=== PATIENT | female | born 1955 | race Caucasian/White ===

== ENCOUNTER → 2016-04-08 | Outpatient (CLI) | payer MEDICARE ==
[~2016-04-08] MED LIST: AMLODIPINE10 MG; AUGMENTIN 875 M1 TAB PO; CITALOPRAM20 MG PO; GLIPIZIDE10 MG PO; HYDROCODONE BIT1 T11 PO; HYZAAR 50/12.5M1 TAB; LOSARTAN POTASS1 TA2 PO; METFORMIN1000 MG; METFORMIN500 MG PO; MOTRIN,RUFEN800 MG PO; MOTRIN800 MG; PRANDIN2 MG; SIMVASTATIN40 MG PO; VICODIN 5/500 505 MG; XANAX0.5 MG; ZOVIRAX400 MG PO
[2016-04-08 14:19] LABS: BASO # 0.1 10*3/uL (0.0-0.1); BASO % 0.6 % (0.0-1.0); EOS # 0.1 10*3/uL (0.0-0.4); EOS % 0.7 % (1.0-4.0); HEMATOCRIT 43.5 % (37.0-47.0); HEMOGLOBIN 14.9 g/dl (12.0-16.0); IG # 0.1 10*3/uL (0.0-0.1); LYMPH % 19.1 % (27.0-41.0); MEAN CELL VOLUME 89.9 fl (81.0-99.0); MEAN CORPUSCULAR HGB 30.8 pg (27.0-31.0); MEAN CORPUSCULAR HGB CONC 34.3 g/dl (33.0-37.0); MEAN PLATELET VOLUME 10.6 fl (9.6-12.3); MONO # 0.9 10*3/uL (0.1-1.0); MONO % 8.4 % (3.0-9.0); NEUT # 7.5 10*3/uL (2.3-7.9); NEUT % 70.5 % (47.0-73.0); PLATELET COUNT AUTOMATED 316 10*3/uL (130-400); RED BLOOD COUNT 4.84 10*6/uL (4.10-5.10); RED CELL DISTRI WIDTH 13.2 % (0-14.5); WHITE BLOOD COUNT 10.7 10*3/uL (4.8-10.8)
[2016-04-08 14:45] LABS: BUN 13 mg/dl (7-24); EST GLOM FILT AFRICAN AMERICAN > 60 ml/min; SGOT/AST 29 IU/L (3-35); SGPT/ALT 44 U/L (12-78)
== END | disposition home or self-care (01) ==
LOC: LAB 13:47
PROVIDERS: Internal Medicine Rheumatology
DX: Z51.81 Encounter for therapeutic drug level monitoring (principal)

== ENCOUNTER → 2017-03-17 | Outpatient (CLI) | payer MEDICARE | END | disposition home or self-care (01) | LOC: MAMMO 09:45 | DX: Z12.31 Encounter for screening mammogram for malignant neoplasm of breast (principal) ==

== ENCOUNTER → 2017-09-10 | Outpatient (CLI) | payer MEDICARE | END | disposition home or self-care (01) | LOC: RAD 13:00 | DX: Z13.820 Encounter for screening for osteoporosis (principal); J98.8 Other specified respiratory disorders; E11.9 Type 2 diabetes mellitus without complications; E55.9 Vitamin D deficiency, unspecified; R29.890 Loss of height; Z78.0 Asymptomatic menopausal state; Z87.891 Personal history of nicotine dependence; Z90.710 Acquired absence of both cervix and uterus; Z79.52 Long term (current) use of systemic steroids ==

== ENCOUNTER 2017-09-13 18:03 | Emergency (ER) | payer MEDICARE ==
[~2017-09-13] VITALS: Ht 165.1 cm; Wt 104.3 kg
== END 2017-09-13 19:09 | disposition home or self-care (01) ==
LOC: ED 18:03
DX: G45.9 Transient cerebral ischemic attack, unspecified (principal); G89.29 Other chronic pain; M25.561 Pain in right knee; I10 Essential (primary) hypertension; E11.9 Type 2 diabetes mellitus without complications; M06.9 Rheumatoid arthritis, unspecified; Z90.710 Acquired absence of both cervix and uterus; Z98.890 Other specified postprocedural states; Z79.899 Other long term (current) drug therapy; Z91.012 Allergy to eggs; Z91.010 Allergy to peanuts

== ENCOUNTER → 2019-08-18 | Day surgery (SDC) | payer MEDICARE ==
[~2019-08-18] VITALS: Ht 167.6 cm; Wt 108.9 kg
[~2019-08-18] MED LIST changes: +ASPIRIN CHEWABL81 MG PO; +ENBREL MIN50 MG/1 M1 SQ; +LIPITOR40 MG PO; +NATURE'S BLEND F1 MG PO; +OCUFLOX 0.3% 5 M5 ML INTRAOC; +PLAVIX75 M1 PO; +PRED FORTE5 ML IO; +TRESIBA FL200 UNIT/1 SQ; +VENT7GM INH; +VITAMIN D-40010 MCG PO
[2019-08-18 07:30] VITALS: BP 163/77
[2019-08-18 09:01] VITALS: BP 122/59
[2019-08-18 09:16] VITALS: BP 129/87
[2019-08-18 09:31] VITALS: BP 127/63
== END | disposition home or self-care (01) ==
LOC: SDC 06-11 09:30
DX: H25.811 Combined forms of age-related cataract, right eye (principal); I10 Essential (primary) hypertension; E11.9 Type 2 diabetes mellitus without complications; J45.909 Unspecified asthma, uncomplicated; F41.9 Anxiety disorder, unspecified; F32.9 Major depressive disorder, single episode, unspecified; I25.10 Atherosclerotic heart disease of native coronary artery without angina pectoris; K21.9 Gastro-esophageal reflux disease without esophagitis; E78.5 Hyperlipidemia, unspecified; M19.90 Unspecified osteoarthritis, unspecified site; E66.9 Obesity, unspecified; Z68.38 Body mass index [BMI] 38.0-38.9, adult; Z98.890 Other specified postprocedural states; Z79.899 Other long term (current) drug therapy; Z86.73 Personal history of transient ischemic attack (TIA), and cerebral infarction without residual deficits; Z83.3 Family history of diabetes mellitus; Z82.49 Family history of ischemic heart disease and other diseases of the circulatory system

== ENCOUNTER → 2019-09-15 | Day surgery (SDC) | payer MEDICARE ==
[2019-09-15 06:35] VITALS: BP 157/81
[2019-09-15 08:15] VITALS: BP 122/79
[2019-09-15 08:30] VITALS: BP 12/53
[2019-09-15 08:44] VITALS: BP 119/58
== END | disposition home or self-care (01) ==
LOC: SDC 09-09 08:00
DX: H25.812 Combined forms of age-related cataract, left eye (principal); I10 Essential (primary) hypertension; J45.909 Unspecified asthma, uncomplicated; E11.36 Type 2 diabetes mellitus with diabetic cataract; F41.9 Anxiety disorder, unspecified; K21.9 Gastro-esophageal reflux disease without esophagitis; F32.9 Major depressive disorder, single episode, unspecified; Z98.890 Other specified postprocedural states; Z79.899 Other long term (current) drug therapy; Z79.4 Long term (current) use of insulin; Z83.3 Family history of diabetes mellitus; Z82.49 Family history of ischemic heart disease and other diseases of the circulatory system

== ENCOUNTER → 2019-09-30 | Outpatient (CLI) | payer MEDICARE | END | disposition home or self-care (01) | LOC: MAMMO 09-27 09:00 | DX: Z12.31 Encounter for screening mammogram for malignant neoplasm of breast (principal) ==

== ENCOUNTER → 2021-03-15 | Outpatient (CLI) | payer OTHER ==
[2021-03-15 12:24] LABS: BASO # 0.1 10*3/uL (0.0-0.1); BASO % 0.6 % (0.0-1.0); EOS # 0.1 10*3/uL (0.0-0.4); EOS % 0.9 % (1.0-4.0); HEMATOCRIT 40.5 % (37.0-47.0); LYMPH # 2.1 10*3/uL (1.3-4.4); LYMPH % 25.8 % (27.0-41.0); MEAN CELL VOLUME 91.4 fl (81.0-99.0); MEAN CORPUSCULAR HGB 30.2 pg (27.0-31.0); MEAN CORPUSCULAR HGB CONC 33.1 g/dl (33.0-37.0); MEAN PLATELET VOLUME 10.4 fl (9.6-12.3); MONO # 0.7 10*3/uL (0.1-1.0); MONO % 8.7 % (3.0-9.0); NEUT # 5.1 10*3/uL (2.3-7.9); NEUT % 63.4 % (47.0-73.0); PLATELET COUNT AUTOMATED 312 10*3/uL (130-400); RED BLOOD COUNT 4.43 10*6/uL (4.10-5.10); RED CELL DISTRI WIDTH 13.6 % (0-14.5); WHITE BLOOD COUNT 8.1 10*3/uL (4.8-10.8)
[2021-03-15 12:41] LABS: BUN 11 mg/dl (7-24); CHOLESTEROL 165 mg/dL (<200); CREATININE 0.84 mg/dL (0.55-1.02); LDL CHOLESTEROL 69 mg/dL (9-159); SGOT/AST 26 IU/L (3-35); SGPT/ALT 42 U/L (12-78); TRIGLYCERIDES 132 mg/dl (<150)
== END | disposition home or self-care (01) ==
LOC: LAB 11:16
PROVIDERS: ATTEND Internal Medicine Rheumatology
DX: Z79.899 Other long term (current) drug therapy (principal)

== ENCOUNTER → 2021-07-27 | Outpatient (CLI) | payer OTHER ==
[2021-07-27 09:46] LABS: CHOLESTEROL 125 mg/dL (<200); LDL CHOLESTEROL 55 mg/dL (9-159); TRIGLYCERIDES 79 mg/dl (<150)
== END | disposition home or self-care (01) ==
LOC: LAB 08:41
PROVIDERS: ATTEND Internal Medicine Cardiovascular Disease
DX: I25.10 Atherosclerotic heart disease of native coronary artery without angina pectoris (principal)

== ENCOUNTER → 2022-05-13 | Outpatient (CLI) | payer OTHER | END | disposition home or self-care (01) | LOC: MAMMO 03-25 08:30 | PROVIDERS: ATTEND Family Medicine | DX: Z12.31 Encounter for screening mammogram for malignant neoplasm of breast (principal) ==

== ENCOUNTER → 2022-06-14 | Outpatient (CLI) | payer OTHER | END | disposition home or self-care (01) | LOC: RAD 11:16 | PROVIDERS: ATTEND Family Medicine | DX: R05.3 Chronic cough (principal) ==

== ENCOUNTER → 2023-04-18 | Outpatient (CLI) | payer BC ==
[2023-04-18 10:11] LABS: BASO # 0.1 10*3/uL (0.0-0.1); BASO % 0.7 % (0.0-1.0); EOS # 0.1 10*3/uL (0.0-0.4); EOS % 0.9 % (1.0-4.0); HEMATOCRIT 42.8 % (37.0-47.0); LYMPH # 1.2 10*3/uL (1.3-4.4); LYMPH % 13.2 % (27.0-41.0); MEAN CELL VOLUME 90.3 fl (81.0-99.0); MEAN CORPUSCULAR HGB 29.5 pg (27.0-31.0); MEAN CORPUSCULAR HGB CONC 32.7 g/dl (33.0-37.0); MEAN PLATELET VOLUME 9.4 fl (9.6-12.3); MONO % 10.6 % (3.0-9.0); NEUT # 6.8 10*3/uL (2.3-7.9); NEUT % 74.4 % (47.0-73.0); PLATELET COUNT AUTOMATED 510 10*3/uL (130-400); RED BLOOD COUNT 4.74 10*6/uL (4.10-5.10); RED CELL DISTRI WIDTH 13.2 % (0-14.5); WHITE BLOOD COUNT 9.2 10*3/uL (4.8-10.8)
[2023-04-18 10:41] LABS: CHOLESTEROL 131 mg/dL (<200); LDL CHOLESTEROL 51 mg/dL (9-159); TRIGLYCERIDES 81 mg/dl (<150)
[2023-04-18 10:43] LABS: ALKALINE PHOSPHATASE 101 U/L (46-116); BUN 8 mg/dl (9-23); CHLORIDE 96 mmol/L (98-107); SGPT/ALT 24 U/L (5-49); TOTAL PROTEIN 7.5 gm/dL (6.0-8.0)
== END | disposition home or self-care (01) ==
LOC: LAB 09:41
PROVIDERS: Physician Assistant; Student in an Organized Health Care Education/Training Program; ATTEND Internal Medicine
DX: M05.79 Rheumatoid arthritis with rheumatoid factor of multiple sites without organ or systems involvement (principal); Z79.899 Other long term (current) drug therapy

== ENCOUNTER → 2023-04-28 | Outpatient (CLI) | payer BC | END | disposition home or self-care (01) | LOC: RAD 10:32 | PROVIDERS: ATTEND Family Medicine | DX: M47.816 Spondylosis without myelopathy or radiculopathy, lumbar region (principal); R06.02 Shortness of breath; M05.79 Rheumatoid arthritis with rheumatoid factor of multiple sites without organ or systems involvement; I70.0 Atherosclerosis of aorta; R05.9 Cough, unspecified; I10 Essential (primary) hypertension; E11.9 Type 2 diabetes mellitus without complications; M25.552 Pain in left hip; M25.551 Pain in right hip; Z79.899 Other long term (current) drug therapy ==

== ENCOUNTER → 2023-07-07 | Outpatient (CLI) | payer BC | END | disposition home or self-care (01) | LOC: CT 09:00 → US 10:00 | PROVIDERS: ATTEND Family Medicine | DX: I65.23 Occlusion and stenosis of bilateral carotid arteries (principal); R05.9 Cough, unspecified; I25.10 Atherosclerotic heart disease of native coronary artery without angina pectoris; I28.1 Aneurysm of pulmonary artery; K76.0 Fatty (change of) liver, not elsewhere classified; E04.2 Nontoxic multinodular goiter ==

== ENCOUNTER → 2023-07-21 | Outpatient (CLI) | payer BC | END | disposition home or self-care (01) | LOC: CARD 02:01 | PROVIDERS: ATTEND Family Medicine | DX: R06.01 Orthopnea (principal) ==

== ENCOUNTER → 2023-10-07 | Outpatient (CLI) | payer OTHER | LOC: US 12:30 | PROVIDERS: ATTEND Family Medicine | DX: E04.1 Nontoxic single thyroid nodule (principal) ==

== ENCOUNTER → 2023-10-28 | Outpatient (CLI) | payer OTHER ==
[2023-10-28 11:24] LABS: ACT PARTIAL THROMBO TIME 24.2 SECONDS (20.0-32.1)
== END | disposition home or self-care (01) ==
LOC: SDC 10-22 11:00 → EDSTATUS 10-22 11:00 → LAB 00:58
PROVIDERS: Radiology Diagnostic Radiology; ATTEND Family Medicine
DX: E04.2 Nontoxic multinodular goiter (principal)

== ENCOUNTER → 2024-01-21 | Outpatient (CLI) | payer OTHER ==
[2024-01-21 13:49] LABS: BASO # 0.1 10*3/uL (0.0-0.1); EOS # 0.1 10*3/uL (0.0-0.4); EOS % 1.3 % (1.0-4.0); HEMATOCRIT 39.6 % (37.0-47.0); LYMPH # 1.8 10*3/uL (1.3-4.4); LYMPH % 28.8 % (27.0-41.0); MEAN CELL VOLUME 84.6 fl (81.0-99.0); MEAN CORPUSCULAR HGB 26.3 pg (27.0-31.0); MEAN CORPUSCULAR HGB CONC 31.1 g/dl (33.0-37.0); MEAN PLATELET VOLUME 10.6 fl (9.6-12.3); MONO # 1.2 10*3/uL (0.1-1.0); MONO % 19.8 % (3.0-9.0); NEUT % 48.6 % (47.0-73.0); PLATELET COUNT AUTOMATED 307 10*3/uL (130-400); RED BLOOD COUNT 4.68 10*6/uL (4.10-5.10); RED CELL DISTRI WIDTH 15.3 % (0-14.5); WHITE BLOOD COUNT 6.2 10*3/uL (4.8-10.8)
[2024-01-21 14:24] LABS: BUN 10 mg/dl (9-23); SGPT/ALT 29 U/L (5-49)
== END | disposition home or self-care (01) ==
LOC: LAB 13:03
PROVIDERS: ATTEND Physician Assistant
DX: M05.79 Rheumatoid arthritis with rheumatoid factor of multiple sites without organ or systems involvement (principal); Z79.899 Other long term (current) drug therapy

== ENCOUNTER → 2024-03-01 | Outpatient (CLI) | payer OTHER ==
[2024-03-01 14:22] LABS: BASO # 0.1 10*3/uL (0.0-0.1); BASO % 0.6 % (0.0-1.0); EOS # 0.1 10*3/uL (0.0-0.4); EOS % 1.3 % (1.0-4.0); HEMATOCRIT 38.2 % (37.0-47.0); MEAN CELL VOLUME 83.6 fl (81.0-99.0); MEAN CORPUSCULAR HGB CONC 31.2 g/dl (33.0-37.0); MEAN PLATELET VOLUME 8.9 fl (9.6-12.3); MONO # 0.8 10*3/uL (0.1-1.0); MONO % 8.3 % (3.0-9.0); NEUT # 7.1 10*3/uL (2.3-7.9); NEUT % 70.4 % (47.0-73.0); PLATELET COUNT AUTOMATED 562 10*3/uL (130-400); RED BLOOD COUNT 4.57 10*6/uL (4.10-5.10); RED CELL DISTRI WIDTH 15.3 % (0-14.5); WHITE BLOOD COUNT 10.1 10*3/uL (4.8-10.8)
[2024-03-01 14:47] LABS: BUN 11 mg/dl (9-23); SGPT/ALT 32 U/L (5-49)
== END | disposition home or self-care (01) ==
LOC: LAB 14:06
PROVIDERS: ATTEND Internal Medicine Rheumatology
DX: M05.79 Rheumatoid arthritis with rheumatoid factor of multiple sites without organ or systems involvement (principal); Z79.899 Other long term (current) drug therapy

== ENCOUNTER 2024-05-29 12:45 | Emergency (ER) | payer OTHER ==
[~2024-05-29] VITALS: Ht 167.6 cm; Wt 104.3 kg
[~2024-05-29 12:45] MED LIST changes: +AMOX-CLAV 875-1 EACH PO; +ASPIRIN ADULT L81 M1 PO; +CARDIZEM CD240 M1 PO; +CELEXA40 MG PO; +DIGOXIN125 MCG PO; +DOXYCYCLINE HY100 M3 PO; +GLIPIZIDE10 M2 PO; +HYDR25T PO; +HYDROCODONE-AC1 EAC1 PO; +JANUVIA100 MG PO; +LOSARTAN-HCTZ1 EAC1 PO; +METFORMIN HYDR500 MG PO; +METOPROLOL SUCC50 M1 PO; +NORVASC2.5 MG PO; +PANTOPRAZOLE SO40 MG PO; +PREDNISONE10 MG PO; +RINVOQ ER15 MG PO; +SINGULAIR10 M1 PO; +TOPROL XL25 MG PO; +TRESIBA100 UNIT/1 SQ; +TRULICITY3 MG/0.5 M SQ; +XARE20MG PO; +ZYRTEC10 M2 PO
[2024-05-29] MEDS ORDERED: FAMOTIDINE 50 ML IV ONE (14:00)
[2024-05-29] MEDS ORDERED: methylPREDNISolone sod succ 125 MG VIAL IV ONE (14:00)
[2024-05-29] MEDS ORDERED: diphenhydrAMINE hydrochloride 50 MG/ML VIAL IV ONE (14:00)
[2024-05-29] MEDS ORDERED: EPINEPHrine Hydrochloride 1 MG/ML AMP IM ONE (15:55)
== END 2024-05-29 17:38 | disposition home or self-care (01) ==
LOC: ED 12:45
DX: L50.9 Urticaria, unspecified (principal); T46.0X5A Adverse effect of cardiac-stimulant glycosides and drugs of similar action, initial encounter; I11.0 Hypertensive heart disease with heart failure; I50.9 Heart failure, unspecified; E11.9 Type 2 diabetes mellitus without complications; F41.9 Anxiety disorder, unspecified; F32.A Depression, unspecified; K21.9 Gastro-esophageal reflux disease without esophagitis; E78.00 Pure hypercholesterolemia, unspecified; M19.90 Unspecified osteoarthritis, unspecified site; M79.7 Fibromyalgia; J45.909 Unspecified asthma, uncomplicated; Z79.4 Long term (current) use of insulin; Z91.012 Allergy to eggs; Z91.018 Allergy to other foods; Z88.8 Allergy status to other drugs, medicaments and biological substances; Z90.89 Acquired absence of other organs; Z90.710 Acquired absence of both cervix and uterus; Z98.890 Other specified postprocedural states; Y92.89 Other specified places as the place of occurrence of the external cause

== ENCOUNTER → 2024-06-30 | Outpatient (CLI) | payer OTHER ==
[~2024-06-30] MED LIST changes: +CEFDINIR300 MG PO; +LASIX20 MG PO; +LEVOFLOXACIN750 M2 PO; +OXYGEN NAS; +POTASSIUM CHLO10 ME5 PO
[2024-06-30 14:36] LABS: BASO # 0.2 10*3/uL (0.0-0.1); BASO % 1.1 % (0.0-1.0); EOS # 0.3 10*3/uL (0.0-0.4); HEMATOCRIT 31.2 % (37.0-47.0); MEAN CELL VOLUME 80.2 fl (81.0-99.0); MEAN CORPUSCULAR HGB 23.1 pg (27.0-31.0); MEAN CORPUSCULAR HGB CONC 28.8 g/dl (33.0-37.0); MEAN PLATELET VOLUME 9.5 fl (9.6-12.3); MONO # 1.5 10*3/uL (0.1-1.0); MONO % 10.5 % (3.0-9.0); NEUT # 10.5 10*3/uL (2.3-7.9); NEUT % 74.5 % (47.0-73.0); NUCLEATED RED BLOOD CELL 0.1 10*3/uL (0.0-0.0); NUCLEATED RED BLOOD CELL 0.4 % (0.0-0.0); PLATELET COUNT AUTOMATED 708 10*3/uL (130-400); RED BLOOD COUNT 3.89 10*6/uL (4.10-5.10); RED CELL DISTRI WIDTH 18.4 % (0-14.5)
[2024-06-30 15:04] LABS: ALKALINE PHOSPHATASE 124 U/L (46-116); BUN 15 mg/dl (9-23); CHLORIDE 101 mmol/L (98-107); POTASSIUM 4.8 mmol/L (3.4-5.1); SGPT/ALT 64 U/L (5-49); TOTAL PROTEIN 6.5 gm/dL (6.0-8.0)
== END | disposition home or self-care (01) ==
LOC: LAB 13:55
PROVIDERS: ATTEND Internal Medicine
DX: J18.9 Pneumonia, unspecified organism (principal)

== ENCOUNTER → 2024-07-16 | Outpatient (CLI) | payer OTHER ==
[2024-07-16 13:11] LABS: BASO # 0.1 10*3/uL (0.0-0.1); BASO % 0.5 % (0.0-1.0); EOS # 0.2 10*3/uL (0.0-0.4); EOS % 1.3 % (1.0-4.0); HEMATOCRIT 33.1 % (37.0-47.0); MEAN CELL VOLUME 78.8 fl (81.0-99.0); MEAN CORPUSCULAR HGB 21.9 pg (27.0-31.0); MEAN CORPUSCULAR HGB CONC 27.8 g/dl (33.0-37.0); MONO # 1.5 10*3/uL (0.1-1.0); MONO % 9.5 % (3.0-9.0); NEUT # 12.6 10*3/uL (2.3-7.9); NEUT % 82.2 % (47.0-73.0); PLATELET COUNT AUTOMATED 683 10*3/uL (130-400); RED CELL DISTRI WIDTH 18.1 % (0-14.5); WHITE BLOOD COUNT 15.3 10*3/uL (4.8-10.8)
[2024-07-16 13:33] LABS: ALKALINE PHOSPHATASE 111 U/L (46-116); BUN 9 mg/dl (9-23); CHLORIDE 95 mmol/L (98-107); POTASSIUM 3.7 mmol/L (3.4-5.1); SGPT/ALT 14 U/L (5-49); TOTAL PROTEIN 6.9 gm/dL (6.0-8.0)
== END | disposition home or self-care (01) ==
LOC: LAB 12:48
PROVIDERS: ATTEND Family Medicine
DX: I50.30 Unspecified diastolic (congestive) heart failure (principal); D47.3 Essential (hemorrhagic) thrombocythemia

== ENCOUNTER → 2024-09-04 | Outpatient (CLI) | payer OTHER ==
[~2024-09-04] MED LIST changes: +TRELEGY ELLIPT1 EACH INH
[2024-09-04 11:11] LABS: BASO # 0.1 10*3/uL (0.0-0.1); BASO % 0.6 % (0.0-1.0); EOS # 0.1 10*3/uL (0.0-0.4); EOS % 0.9 % (1.0-4.0); HEMATOCRIT 32.9 % (37.0-47.0); MEAN CELL VOLUME 78.1 fl (81.0-99.0); MEAN CORPUSCULAR HGB 21.6 pg (27.0-31.0); MEAN CORPUSCULAR HGB CONC 27.7 g/dl (33.0-37.0); MEAN PLATELET VOLUME 8.7 fl (9.6-12.3); MONO # 1.1 10*3/uL (0.1-1.0); MONO % 12.9 % (3.0-9.0); NEUT # 6.6 10*3/uL (2.3-7.9); NEUT % 77.6 % (47.0-73.0); PLATELET COUNT AUTOMATED 600 10*3/uL (130-400); RED BLOOD COUNT 4.21 10*6/uL (4.10-5.10); RED CELL DISTRI WIDTH 22.3 % (0-14.5); WHITE BLOOD COUNT 8.5 10*3/uL (4.8-10.8)
[2024-09-04 11:37] LABS: ALKALINE PHOSPHATASE 101 U/L (46-116); BUN 8 mg/dl (9-23); CHLORIDE 101 mmol/L (98-107); SGPT/ALT 8 U/L (5-49); TOTAL PROTEIN 6.6 gm/dL (6.0-8.0)
== END | disposition home or self-care (01) ==
LOC: LAB 10:36
PROVIDERS: ATTEND Family Medicine
DX: K92.2 Gastrointestinal hemorrhage, unspecified (principal)

== ENCOUNTER → 2024-09-10 | Outpatient (CLI) | payer OTHER | END | disposition home or self-care (01) | LOC: US 12:53 | PROVIDERS: ATTEND Internal Medicine Cardiovascular Disease | DX: I65.23 Occlusion and stenosis of bilateral carotid arteries (principal) ==

== ENCOUNTER → 2024-12-22 | Outpatient (CLI) | payer OTHER ==
[2024-12-22 12:15] LABS: BASO # 0.1 10*3/uL (0.0-0.1); BASO % 0.7 % (0.0-1.0); EOS # 0.1 10*3/uL (0.0-0.4); EOS % 0.9 % (1.0-4.0); MEAN CELL VOLUME 92.7 fl (81.0-99.0); MEAN CORPUSCULAR HGB 28.8 pg (27.0-31.0); MEAN PLATELET VOLUME 9.1 fl (9.6-12.3); MONO # 1.0 10*3/uL (0.1-1.0); MONO % 11.3 % (3.0-9.0); NEUT # 6.4 10*3/uL (2.3-7.9); NEUT % 71.6 % (47.0-73.0); NUCLEATED RED BLOOD CELL 0.0 % (0.0-0.0); NUCLEATED RED BLOOD CELL 0.0 10*3/uL (0.0-0.0); PLATELET COUNT AUTOMATED 388 10*3/uL (130-400); RED CELL DISTRI WIDTH 19.2 % (0-14.5)
[2024-12-22 12:47] LABS: BUN 8 mg/dl (9-23); SGPT/ALT 28 U/L (5-49)
== END | disposition home or self-care (01) ==
LOC: LAB 11:40
PROVIDERS: ATTEND Internal Medicine Rheumatology
DX: M05.79 Rheumatoid arthritis with rheumatoid factor of multiple sites without organ or systems involvement (principal); Z79.899 Other long term (current) drug therapy